=== PATIENT | female | born 1985 ===

== ENCOUNTER 2017-03-03 20:05 | Emergency (ER) | payer SELFPAY ==
[2017-03-03 20:23] VITALS: RESP 16; O2SAT 100
[2017-03-03] MEDS ORDERED: Alum-Mag Hydrox-Simethicone Susp (30 mL) PO STA (20:55)
--- NOTE | 2017-03-03 21:22 | ED PDOC ---
HPI: Abdomen Time Seen by Provider: 03/03/17 20:32 Chief Complaint (Nursing): Abdominal Pain Chief Complaint (Provider): Abdominal Pain History Per: Patient History/Exam Limitations: no limitations Outside of [place] travel?: No Current Symptoms Are (Timing): Still Present Location Of Pain/Discomfort: Epigastric Associated Symptoms: Nausea, Vomiting (x5) Exacerbating Factors: Food Additional Complaint(s): Rohini Peralta, a 31 year old female, who has a past medical history of gastritis presents to the ED with abdominal pain and vomiting x5 episodes. The patient states that the pain is epigastric and radiates to her chest and throat she also says she has had 5 episodes of vomiting between yesterday and today. She reports that she does not take any medication for the pain and it gets worst after food consumption. Past Medical History Reviewed: Historical Data, Nursing Documentation, Vital Signs Vital Signs: Last Vital Signs Temp 98.1 F 03/04/17 01:15 Pulse 72 03/04/17 01:15 Resp 16 03/04/17 01:15 BP 127/82 03/04/17 01:15 Pulse Ox 100 03/04/17 05:08 - Medical History PMH: Gastritis - Family History Family History: States: Unknown Family Hx - Home Medications Home Medications: Ambulatory Orders Medication Instructions Recorded Ibuprofen [Motrin Tab] 600 mg PO Q6 #30 tab 03/04/17 Ondansetron [Zofran] 4 mg PO Q8H #12 tab 03/04/17 - Allergies Allergies/Adverse Reactions: Allergies Allergy/AdvReac Type Severity Reaction Status Date / Time No Known Allergies Allergy Verified 03/03/17 20:20 Review of Systems ROS Statement: Except As Marked, All Systems Reviewed And Found Negative Gastrointestinal: Positive for: Nausea, Vomiting (x5), Abdominal Pain ( Epigastric pain) Physical Exam - Reviewed Nursing Documentation Reviewed: Yes Vital Signs Reviewed: Yes - Physical Exam Appears: Positive for: Non-toxic, No Acute Distress Head Exam: Positive for: ATRAUMATIC, NORMAL INSPECTION, NORMOCEPHALIC Skin: Positive for: Normal Color, Warm, Dry Eye Exam: Positive for: Normal appearance, EOMI, PERRL ENT: Positive for: Normal ENT Inspection Neck: Positive for: Normal, Painless ROM, Supple Cardiovascular/Chest: Positive for: Regular Rate, Rhythm, Chest Non Tender. Negative for: Tachycardia Respiratory: Positive for: Normal Breath Sounds. Negative for: Wheezing, Respiratory Distress Gastrointestinal/Abdominal: Positive for: Bowel Sounds, Soft, Tenderness (Mild epigastric tenderness.). Negative for: Guarding, Rebound Back: Positive for: Normal Inspection Extremity: Positive for: Normal ROM. Negative for: Tenderness, Deformity, Swelling Neurologic/Psych: Positive for: Alert, Oriented, Gait - Laboratory Results Result Diagrams: 03/03/17 22:36 03/03/17 22:36 - ECG O2 Sat by Pulse Oximetry: 100 (RA) Pulse Ox Interpretation: Normal Medical Decision Making Medical Decision Makin:32 Initial Impression: 31 year old female presenting with gastritis Initial Plan: * Upreg * Udip * Lidocaine 2% viscous 15ml PO * Maalox Plus 30 ml PO * Pepcid 20mg PO * Reevaluation 0307: Pt. has gallstones but no signs of cholecystitis. [place] better after morphine and toradol. Upon re-evaluation, patient is feeling much better and is medically stable and ready for discharge. Counseling has been provided and patient is in agreement. Return if symptoms persist or acutely worsen. Scribe Attestation Documented by Robina Stewart acting as a scribe for Loi Baird MD. Provider Attestation: All medical record entries made by the Scribe were at my direction and personally dictated by me. I have reviewed the chart and agree that the record accurately reflects my personal performance of the history, physical exam, medical decision making, and the department course for this patient. I have also personally directed, reviewed, and agree with the discharge instructions and disposition. Disposition - Clinical Impression Clinical Impression: Biliary colic - Disposition Referrals: [facility] [Outside] Karla Bonilla MD [Primary Care Provider] - Disposition: Routine/Home Disposition Time: 03:07 Condition: STABLE Prescriptions: Ibuprofen [Motrin Tab] 600 mg PO Q6 #30 tab Ondansetron [Zofran] 4 mg PO Q8H #12 tab Instructions: Biliary Colic (ED) Print Language: MEXICAN
[2017-03-03] MEDS ORDERED: Alum-Mag Hydrox-Simethicone Susp (30 mL) ONE (21:24)
[2017-03-03] MEDS ORDERED: Sodium Chloride 0.9% 1,000 ML IV STA (22:10)
[2017-03-03 22:38] LABS: BASO # 0.1 K/uL (0.0-0.2); BASO % 0.8 % (0.0-2.0); EOS # 0.1 K/uL (0.0-0.7); EOS % 0.8 % (0.0-4.0); LYMPH # 1.9 K/uL (1.0-4.3); LYMPH % 14.4 % (20.0-40.0); MEAN CELL VOLUME 83.4 fl (81.0-99.0); MEAN CORPUSCULAR HEMOGLOBIN 28.1 pg (27.0-31.0); MEAN CORPUSCULAR HGB CONC 33.7 g/dL (33.0-37.0); MEAN PLATELET VOLUME 7.8 fl (7.2-11.7); MONO # 0.8 K/uL (0.0-0.8); MONO % 5.7 % (0.0-10.0); NEUT # 10.5 K/uL (1.8-7.0); NEUT % 78.3 % (50.0-75.0); RBC 4.63 Mil/uL (3.80-5.20); RED CELL DISTRIBUTION WIDTH 14.4 % (11.5-14.5); WHITE BLOOD COUNT 13.4 K/uL (4.8-10.8)
[2017-03-03 22:47] LABS: ALB/GLOB RATIO 1.2 (1.0-2.1); ALBUMIN 4.4 g/dL (3.5-5.0); ALT/SGPT 117 U/L (9-52); AST/SGOT 57 U/L (14-36); BLOOD UREA NITROGEN 7 mg/dl (7-17); CALCIUM 9.4 mg/dL (8.4-10.2); GFR AFRICAN-AMERICAN > 60; GFR NON-AFRICAN AMERICAN > 60; LIPASE 61 U/L (23-300)
[2017-03-03 23:43] LABS: SQUAMOUS EPITHIAL 17 /hpf (0-5); URINE BACTERIA MOD (<OCC); URINE BILIRUBIN NEGATIVE (NEGATIVE); URINE BLOOD SMALL (NEGATIVE); URINE CLARITY CLOUDY (Clear); URINE COLOR YELLOW (YELLOW); URINE GLUCOSE (UA) NEG (Normal); URINE LEUKOCYTE ESTERASE TRACE Leu/uL (Negative); URINE NITRATE NEGATIVE (NEGATIVE); URINE PROTEIN 30 mg/dL (NEGATIVE); URINE UROBILINOGEN 0.2-1.0 mg/dL (0.2-1.0)
--- NOTE | 2017-03-04 02:10 | US ---
EXAM: US Abdomen Limited, Right Upper Quadrant CLINICAL HISTORY: 31 years old, female; Pain; Abdominal pain; Colic; Additional info: Epig pain, vomiting TECHNIQUE: Real-time ultrasound of the right upper quadrant with image documentation. COMPARISON: No relevant prior studies available. FINDINGS: Liver: No acute findings. No mass. No intrahepatic bile duct dilation. Gallbladder: The gallbladder is minimally distended, with a stone and sludge at the neck of the gallbladder. No gallbladder wall thickening or pericholecystic fluid. Common bile duct: No stones. No dilation, measuring 4 mm. Pancreas: Visualization of the pancreas is limited by overlying bowel gas. Right kidney: No acute findings. No obstructing stones. No solid mass. No hydronephrosis. The abdominal aorta is non-aneurysmal. The IVC is patent. IMPRESSION: Minimal distention of the gallbladder with a stone and layering sludge within the neck. Unremarkable sonographic evaluation of the right upper quadrant, as detailed above. Limited evaluation of the pancreas, secondary to overlying bowel gas.
[2017-03-04] MEDS ORDERED: Oxycodone/Acetaminophen 5/325 mg Tab PO ONE (02:19)
[2017-03-04] MEDS ORDERED: Oxycodone/Acetaminophen 5/325 mg Tab ONE (02:22)
[2017-03-04 03:31] VITALS: BP 127/82; PULSE 72; TEMP 98.1
== END 2017-03-04 03:31 | disposition home or self-care (01) ==
LOC: H.ER 20:05
DX: K80.70 Calculus of gallbladder and bile duct without cholecystitis without obstruction (principal)